=== PATIENT | male | born 1985 | race Caucasian/White ===

== ENCOUNTER 2019-06-03 17:54 | Emergency (ER) | payer MEDICARE, MEDICAID, SELFPAY ==
[2019-06-03 18:04] VITALS: BP 145/87; PULSE 91; RESP 16; TEMP 36.7; O2SAT 99
--- NOTE | 2019-06-03 18:39 | ED.DENTAL ---
HPI - Dental/Oral General Chief complaint: Dental/Oral Stated complaint: Tooth pain Time Seen by Provider: 06/03/19 18:40 Source: patient and RN notes reviewed Mode of arrival: ambulatory Limitations: no limitations History of Present Illness HPI Narrative: This is a 33 years ago, pleasant man presented office for evaluation of dental pain. Stated, he got 3 teeth extracted on May 26, 2019. He continues to have pain and swelling since then. He does not recall a follow-up appointment with his dentist or surgeon. He concerns for possible infection. Denies fever; however he feels more tired than usual. Related Data Home Medications Medication Instructions Recorded Confirmed paroxetine HCl 20 mg PO QAM 06/03/19 06/03/19 risperidone 1 mg PO HS 06/03/19 06/03/19 Allergies Allergy/AdvReac Type Severity Reaction Status Date / Time No Known Allergies Allergy Verified 06/03/19 18:26 Review of Systems Review of Systems: Narrative: CONSTITUTIONAL: Denies fever or feeling ill ENT: Denies sore throat pain or difficulty opening his mouth. CARDIOVASCULAR: Denies chest pain RESPIRATORY: Denies dyspnea GASTROINTESTINAL: Denies nausea, vomiting MUSCULOSKELETAL: Denies acute back pain NEUROLOGIC: Denies lightheaded PMFSH Past Medical History Medical History (Updated 06/03/19 @ 18:50 by STEFAN Soriano) Anxiety and depression Comments At time of signature, I agree with nursing past medical, surgical, social and family history. There is no relevant family history pertinent to the presenting complaint. Exam Narrative: Exam Narrative: GENERAL: This is a well-nourished, well-developed patient, in no apparent distress. EYES: Sclera and conjunctivae normal ENT: External ears normal. Nose and lips normal. Airway patent.The extracted teeth noted suture in place with good grandular tissue; however there is swollen around gum line with tender around them. There is no facial swelling, cervical or submandibular lymphadenopathy. CARDIOVASCULAR: Regular rate and rhythm without murmurs, gallops, or rubs. RESPIRATORY: Clear to auscultation. Breath sounds equal bilaterally. No wheezes, rales, or rhonchi. SKIN: warm, intact with no suspicious lesions or rash, good texture and turgor. NEURO: awake, alert, and oriented to person, place and time. There were no obvious focal neurologic abnormalities. Course Vital Signs Vital signs: Vital Signs Temperature 98.1 F 06/03/19 18:04 Pulse Rate 91 06/03/19 18:04 Respiratory Rate 16 06/03/19 18:04 Blood Pressure 145/87 H 06/03/19 18:04 Pulse Oximetry 99 06/03/19 18:04 Temperature 98.1 F 06/03/19 18:04 Pulse Rate 91 06/03/19 18:04 Respiratory Rate 16 06/03/19 18:04 Blood Pressure 145/87 H 06/03/19 18:04 Pulse Oximetry 99 06/03/19 18:04 MDM - Dental/Oral MDM Narrative Medical decision making narrative: Discharge instructions reviewed with patient, as well as provided in writing per nursing staff. The instructions also include specific and strict return/GO TO THE ER as well as f/u information. All questions have been answered, and the patient deny any further questions with discharge and discharge plan. Differential Diagnosis Differential diagnosis: Likely gingival abscess, dental caries, toothache, dental abscess, fracture of tooth and aphthous ulcer Critical Care Time Critical Care Time Critical Care Time: No Discharge Plan Discharge Clinical Impression: Toothache, Elevated BP without diagnosis of hypertension Patient Disposition: Home, Self-Care Condition: Stable Instructions: Antibiotic Form, Toothache (ED) Additional Instructions: Take antibiotic until it's gone. Brushing teeth at least twice daily with gentle flossing. Avoid temperature extremes---when you eat. Salt gargle to rinse your mouth after every meal You may apply ice to the face to reduce pain/swelling. For pain, you may take: Tylenol 650-1000mg by
== END 2019-06-03 18:48 | disposition home or self-care (01) ==
PROVIDERS: Emergency Provider Nurse Practitioner
DX: K08.89 Other specified disorders of teeth and supporting structures (principal); R03.0 Elevated blood-pressure reading, without diagnosis of hypertension; F41.9 Anxiety disorder, unspecified; F32.9 Major depressive disorder, single episode, unspecified
CPT/HCPCS: 99213; G0463

== ENCOUNTER 2019-07-06 22:05 | Emergency (ER) | payer MEDICARE, MEDICAID, SELFPAY ==
[2019-07-06 22:07] VITALS: BP 177/94; PULSE 99; RESP 19; TEMP 37.1; O2SAT 99
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
[2019-07-06 22:11] LABS: Glucose Point of Care 130 (65-105)
[2019-07-06 22:34] LABS: Blood Urea Nitrogen 8 mg/dL (9-20); Calcium 10.1 mg/dL (8.4-10.2); Carbon Dioxide 25 mmol/L (22-30); Chloride 101 mmol/L (98-107); Estimated CRCL calculation 121 ml/min; Estimated Glomerular Filt Rate > 60; Glucose 130 mg/dL (75-110); Sodium 140 mmol/L (137-145)
== END 2019-07-06 22:49 | disposition home or self-care (01) ==
PROVIDERS: Emergency Provider Emergency Medicine
DX: E11.9 Type 2 diabetes mellitus without complications (principal); Z79.84 Long term (current) use of oral hypoglycemic drugs
CPT/HCPCS: 36415; 80048; 82948; 99283

== ENCOUNTER 2024-11-23 16:57 | Emergency (ER) | payer OTHER, SELFPAY ==
--- OUTSIDE RECORDS SUMMARY | 2024-11-23 17:00 | XMS_ITS | Clinical Summary ---
Author Organization [facility] Medical [facility] Building [address] Address [address] [place] [address] Care Team Providers Care Cartography Professor Name Role Phone Adam Gipson MD Primary Care Provider [phone] Allergies No known active allergies Medications chlorhexidine (PERIDEX) 0.12 % solution 15 mL 2 (two) times a day 06/30/2019 Active diazePAM (VALIUM) 5 mg tablet Take 1 tablet twice a day by oral route. Active folic acid (FOLVITE) 1 mg tablet TK 1 T PO D 11/24/2019 Active furosemide (LASIX) 20 mg tablet TK 1 T PO QD 11/24/2019 Active metFORMIN (GLUCOPHAGE) 1,000 mg tablet TK ONE T PO BID WITH MEALS 12/29/2019 Active PARoxetine (PAXIL) 20 mg tablet TK 1 T PO QHS 01/20/2020 Active potassium chloride ER 20 mEq CR tablet TK 1 T PO QD 11/24/2019 Active potassium chloride ER (KLOR-CON) 20 mEq CR tablet Active risperiDONE (RisperDAL) 2 mg tablet TK 1 T PO HS 01/20/2020 Active thiamine (VITAMIN B-1) 100 mg tablet TK 1 T PO D 11/24/2019 Act mata Active Problems Problem Noted Date Diagnosed Date Abnormal liver enzymes 02/20/2020 Assessment & Plan (03/11/2020 3:26 PM SENIOR GEOTECHNICAL ENGINEER): LFTs essentially jnormal so were probably elevted due to the etoh excess. Discussed NAFLD in light of glucose intolerance and obesity and recommended weight loss and dibetic control and moderqtion of etoh. Return prn. Assessment & Plan (02/20/2020 2:26 PM SENIOR GEOTECHNICAL ENGINEER): Records indicate marked elevation of transaminases but patient admits to 12 beers/d at that time and has reduced considerably last 3 mos. Hb a 1 c 12.9 and on metformin 1000 bid. Denies parenteral exposure and viral panel neg. Will try to get CT report rom [facility] and get GILLIAN,iron studies,cbc,cmp. return2 weeks to recap. Anxiety 02/20/2020 Cyst of breast 02/20/2020 Depressive disorder 02/20/2020 Hyperlipidemia 02/20/2020 Schizoaffective schizophrenia 02/20/2020 Tobacco dependence syndrome 02/20/2020 Trichomoniasis 02/20/2020 Social History Tobacco Use Types Packs/Day Years Used Date Smoking Tobacco: Every Day Cigarettes Smokeless Tobacco: Never Alcohol Use Standard Drinks/Week Comments Never 0 (1 standard drink = 0.6 oz pur e alcohol) AUDIT-C Answer Date Recorded Q1: How often do you have a drink containing alc ohol? Never 02/20/2020 Average Number of Drinks Not on file 020 Frequency of Binge Drinking Not on file 06/2019 Personal Safety Answer Date Recorded Getting School Help Needed Not on file 07/02 Sex and Gender Information Value Date Recorded Sex Assigned at Not on file Legal Sex Male 11:52 PM SENIOR GEOTECHNICAL ENGINEER Gender Identity Not on file Sexual Orientation Not on file Obstetrics History Last Filed Vital Signs Vital Sign Reading Time Taken Comments Blood Pressure 136/78 03/11/2020 3:18 PM SENIOR GEOTECHNICAL ENGINEER Pulse 72 03/11/2020 3:18 PM SENIOR GEOTECHNICAL ENGINEER Temperature 36.3 C (97.3 F) 03/11/2020 3:18 PM SENIOR GEOTECHNICAL ENGINEER Respiratory Rate 16 03/11/2020 3:18 PM SENIOR GEOTECHNICAL ENGINEER Oxygen Saturation 97% 03/11/2020 3:18 PM SENIOR GEOTECHNICAL ENGINEER Inhaled Oxygen Concentration - - Weight 101.7 kg (224 lb 3.2 oz) 03/11/2020 3:18 PM SENIOR GEOTECHNICAL ENGINEER Height 170.2 cm (5' 7) 03/11/2020 3:18 PM SENIOR GEOTECHNICAL ENGINEER Body Mass Index 35.11 03/11/2020 3:18 PM SENIOR GEOTECHNICAL ENGINEER Plan of Treatment Not on file Insurance MEDICARE [employer] Care Teams Cartography Professor Relationship Specialty Start Date End Date Adam Gipson MD PCP - General Family Medicine 12/14/19
--- OUTSIDE RECORDS SUMMARY | 2024-11-23 17:00 | XMS_ITS | Clinical Summary ---
Author Organization [facility] Address [address] [place] [address] Phone Care Team Providers Care Doll Wig Maker Name Role Phone Adam Gipson MD Primary Care Provider [phone] Allergies No known active allergies Medications risperiDONE (RISPERDAL) 1 MG Tablet Take 1 mg by mouth daily. Active PARoxetine (PAXIL) 20 MG Tablet Take 20 mg by mouth daily. Active chlorhexidine (PERIDEX) 0.12 % Solution 15 mL by Swish & Spit route 2 times daily. 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 Gender Identity Not on file Sexual Orientation Not on file Last Filed Vital Signs Vital Sign Reading Time Taken Comments Blood Pressure 144/71 06/30/2019 1:26 AM CDT Pulse 101 06/30/2019 1:26 AM CDT Temperature 37.2 C (98.9 F) 06/30/2019 1:26 AM CDT Respiratory Rate 18 06/30/2019 1:26 AM CDT Oxygen Saturation 97% 06/30/2019 1:26 AM CDT Inhaled Oxygen Concentration - - Weight 84.4 kg (186 lb) 06/30/2019 1:26 AM CDT Height 170.2 cm (5' 7) 06/30/2019 1:26 AM CDT Body Mass Index 29.13 06/30/2019 1:26 AM CDT Plan of Treatment Health Maintenance Due Date Last Done Comments Hepatitis C Virus (HCV) Screening 1985 Human Papillomavirus (HPV) Immunization (1 - 3-dose SCDM series) 2012 SARS-COV-2 Immunization ( - 2023- season) 2023 Influenza Immunization (#1) 2024 Respiratory Syncytial Virus (RSV) Immunization (Adult) (1 - 1-dose 75+ series) 2060 Hepatitis B Immunization Completed 997, 04/01/1996, 02/26/1996 DTaP/Tdap/Td Immunization Discontinued 2019, 12/09/1990, 04/24/1987, Additional history exists Meningococcal Immunization (ACWY) Aged Out No longer eligible based on patient's age to complete this topic Pneumococcal Immunization Combined Aged Out No longer eligible based on patient's age to complete this topic Rotavirus Immunization Aged Out No lo nger eligible based on patient's age to complete this topic Insurance MEDICARE [place]ICAID [place] Care Teams Doll Wig Maker Relationship Specialty Start Date End Date Adam Gipson MD [address] [facility] [address] [place] [address] PCP - General Family Medicine 12/15/19
[2024-11-23 17:05] VITALS: BP 164/94; PULSE 89; RESP 16; TEMP 36.5; O2SAT 99
--- NOTE | 2024-11-23 17:27 | ED.SKABFB ---
HPI - Skin/Abscess/Foreign Bdy General Chief complaint: Skin/Abscess/Foreign Body Stated complaint: Insect Bite/Left Leg Time Seen by Provider: 11/23/24 17:15 Source: patient and RN notes reviewed Mode of arrival: ambulatory Limitations: no limitations History of Present Illness HPI narrative: 39-year-old male presents to the [facility] complaining of possible bug bites his left lower leg. Patient is unsure if he actually was bit by a bug. Patient noticed the wound behind his left calf 2 days ago. Patient reports that is pruritic it has been scratching at it. Patient has a history of diabetes and takes metformin for it. Patient has increased redness, slight drainage, and swelling. Patient denies any fevers, body aches, chills, nausea, vomiting, or any other symptoms. Related Data Home Medications ?Medication ?Instructions ?Recorded ?Confirmed ?Last Taken ?Type paroxetine HCl 20 mg tablet 20 mg PO QAM 06/03/19 06/03/19 Unknown History risperidone 1 mg tablet 1 mg PO HS 06/03/19 06/03/19 Unknown History ergocalciferol (vitamin D2) 1,250 11/23/24 Unknown History mcg (50,000 unit) capsule glipizide 10 mg tablet mg 11/23/24 Unknown History linagliptin 5 mg tablet (Tradjenta) mg 11/23/24 Unknown History losartan 25 mg tablet mg 11/23/24 Unknown History rosuvastatin 10 mg tablet mg 11/23/24 Unknown History Allergies Allergy/AdvReac Type Severity Reaction Status Date / Time No Known Allergies Allergy Verified 11/23/24 17:03 Review of Systems Review of Systems: CONSTITUTIONAL: Denies fever, chills, or sweats. EYES: Denies visual changes, redness, or discharge. ENT: Denies rhinorrhea, congestion, sore throat, or otalgia. CARDIOVASCULAR: Denies chest pain, palpitations, or edema. RESPIRATORY: Denies cough or dyspnea. GASTROINTESTINAL: Denies abdominal pain, nausea, vomiting, or diarrhea. GENITOURINARY: Denies dysuria or hematuria. SKIN: Positive for rash and itching. MUSCULOSKELETAL: Denies back pain, joint pain, or myalgia. NEUROLOGIC: Denies headache, numbness, or weakness. PSYCHIATRIC: Denies anxiety or depression. All other systems reviewed are negative, except as documented in HPI. [facility] Past Medical History Medical History Diabetes Anxiety and depression Surgical History Surgical History Surgical history unknown Social History Social History Smoking status: Unknown if ever smoked Gender identity (if verbalized by the patient): Male Comments At the time of my signature, I reviewed and agree with the nursing past medical, surgical, social, and family history. There is no relevant family history pertinent to the patient complaint. Exam Narrative: GENERAL: This is a well-nourished, well-developed adult, in no apparent distress. They are non ill-appearing, nontoxic appearing. HEAD: normocephalic, atraumatic. EYES: Sclera clear/white. Conjunctiva normal. Vision is grossly intact. Extraocular movements intact EARS: External ears normal, Hearing grossly intact. NOSE: External nose normal THROAT: Mucous membranes moist, NECK: Neck supple, CARDIOVASCULAR: Regular rate and rhythm RESPIRATORY: Respiratory rate normal, respiratory effort nonlabored, no respiratory distress SKIN: Left lower leg: Macular papular lesion is erythematous to the posterior upper calf. It is indurated and pruritic. Area of excoriation from itching. No exudate, no area of fluctuance, it is nontender to palpate. It is warm to touch. Measures approximately 2 cm x 2 cm. NEURO: awake, alert, and oriented to person, place and time. There were no obvious focal neurologic abnormalities. EXTREMITIES: No joint tenderness, effusion, or edema noted. Course Course Emergency Course: Portions of this record may have been created with voice recognition software Level of Care: Express Care Visit Vital Signs Vital signs: Vital Signs Temperature 97.7 F 11/23/24 17:05 Pulse Rate 89 11/23/24 17:05 Respiratory Rate 16 11/23/24 17:05 Blood Pressure 164/94 H 11/23/24 17:05 Pulse Oximetry 99 11/23/24 17:05 Oxygen Delivery Room Air 11/23/24 17:05 Temperature 97.7 F 11/23/24 17:05 Pulse Rate 89 11/23/24 17:05 Respiratory Rate 16 11/23/24 17:05 Blood Pressure 164/94 H 11/23/24 17:05 Pulse Oximetry 99 11/23/24 17:05 Oxygen Delivery Room Air 11/23/24 17:05 Reviewed MDM - Skin/Abscess/Foreign Bdy MDM Narrative Medical decision making narrative: Patient likely has insect bite to his left lower leg. Given the induration and history of diabetes will go ahead and treat him with doxycycline. Discussed physical exam findings. Advised supportive measures and signs/symptoms to go to the ER. Pt is appropriate for outpt treatment and f/u. Differential Diagnosis Differential diagnosis: Likely dermatophytosis, cellulitis, insect bites and contact dermatitis Critical Care Time Critical Care Time Critical Care Time: No Discharge Plan Discharge Clinical Impression: Insect bites Qualifiers: Encounter type: initial encounter Site of insect bite: lower leg Laterality: left Qualified Code(s): S80.862A - Insect bite (nonvenomous), left lower leg, initial encounter Patient Disposition: Home Condition: Stable Instructions: Antibiotic Form, Insect Bite or Sting (ED) Additional Instructions: Take doxycycline as directed. Please wear sunscreen while taking doxycycline if you are going to be outside. You may use calamine lotion, camphor, hydrocortisone cream Carias Benadryl cream as needed for itchiness symptoms. You may also take Zyrtec or Claritin as needed for allergy or itchiness symptoms. Follow-up PCP in 3-5 days. If you develop any worsening redness, swelling, discharge, fevers, breathing problems, or any other concerns please go to the ER immediately. Patient Language: Rw[place] Prescriptions: New doxycycline monohydrate 100 mg capsule 100 mg PO BID 7 Days Qty: 14 0RF No Action glipizide 10 mg tablet losartan 25 mg tablet ergocalciferol (vitamin D2) 1,250 mcg (50,000 unit) capsule rosuvastatin 10 mg tablet Tradjenta 5 mg tablet paroxetine HCl 20 mg Tablet 20 mg PO QAM risperidone 1 mg Tablet 1 mg PO HS metformin 1,000 mg tablet,ER luigi.retention 24 hr 1,000 mg PO DAILY Qty: 30 0RF Follow-up/Referrals: Brandan,Adam Fuller MD [Primary Care Provider] - Time of Disposition: 17:21
== END 2024-11-23 17:27 | disposition home or self-care (01) ==
PROVIDERS: PCP Family Medicine
DX: S80.862A Insect bite (nonvenomous), left lower leg, initial encounter (principal); W57.XXXA Bitten or stung by nonvenomous insect and other nonvenomous arthropods, initial encounter; E11.9 Type 2 diabetes mellitus without complications; Z79.84 Long term (current) use of oral hypoglycemic drugs; F41.9 Anxiety disorder, unspecified; F32.A Depression, unspecified
CPT/HCPCS: 99213; G0463